=== PATIENT | female | born 1960 | race Caucasian/White ===

== ENCOUNTER 2023-07-04 15:34 | Emergency (ER) | payer MEDICAID ==
[~2023-07-04] VITALS: Ht 160 cm; Wt 54.0 kg
[2023-07-04 15:45] VITALS: O2SAT 98
[2023-07-04] MEDS: ACETAMINOPHEN 325MG TABLET PO STA (16:17)
[2023-07-04] MEDS: LIDOCAINE HCL/PF 1% 10 MG/ML 5ML VIAL INFIL ONE (16:30)
[2023-07-04] MEDS: CEFTRIAXONE SODIUM 1G VIAL IM ONE (16:30)
[2023-07-04 17:00] VITALS: BP 110/71; PULSE 68; RESP 16; TEMP 98.5
[2023-07-04] MEDS ORDERED: OMEP20CA14 MT (17:12)
[2023-07-04] MEDS ORDERED: AMOX1TAB16 MT (17:12)
[2023-07-04] MEDS ORDERED: LIDO1ADH48 TP (17:12)
[2023-07-04] MEDS ORDERED: SULF1TAB48 MT (17:12)
== END 2023-07-04 17:30 | disposition home or self-care (01) ==
LOC: ER 15:34
DX: B02.9 Zoster without complications (principal); L03.116 Cellulitis of left lower limb; Z90.49 Acquired absence of other specified parts of digestive tract
CPT/HCPCS: 96372; 99283; J0696; J3490; Z7610